=== PATIENT | female | born 1945 | race Caucasian/White ===

== ENCOUNTER → 2024-04-26 06:16 | Day surgery (SDC) | payer MEDICARE, OTHER, SELFPAY | LOC: GI 06:16 | PROVIDERS: ATTENDING PHYSICIAN Internal Medicine | DX: Z12.11 Encounter for screening for malignant neoplasm of colon (principal); D12.2 Benign neoplasm of ascending colon; K63.5 Polyp of colon; K57.30 Diverticulosis of large intestine without perforation or abscess without bleeding | CPT/HCPCS: 45380; 88305 ==

== ENCOUNTER → 2024-05-23 12:15 | Outpatient (REF) | payer MEDICARE, OTHER, SELFPAY | LOC: REG 12:15 | PROVIDERS: ATTENDING PHYSICIAN Family Medicine | DX: J06.9 Acute upper respiratory infection, unspecified (principal) | CPT/HCPCS: 71046 ==

== ENCOUNTER 2024-07-14 06:37 | Day surgery (SDC) | payer MEDICARE, OTHER, SELFPAY ==
[2024-07-14 11:05] VITALS: BMI 29.9
[2024-07-14 11:10] VITALS: BP 139/97
[2024-07-14 11:21] VITALS: BMI 29.9
[2024-07-14 13:55] VITALS: BP 130/90
[2024-07-14 14:00] VITALS: BP 122/88
[2024-07-14 14:15] VITALS: BP 146/92
[2024-07-14 14:28] VITALS: BP 144/90
== END 2024-07-14 14:40 | disposition home or self-care (01) ==
LOC: GI 06:37
PROVIDERS: ATTENDING PHYSICIAN Internal Medicine Gastroenterology
DX: D12.2 Benign neoplasm of ascending colon (principal); D12.5 Benign neoplasm of sigmoid colon; K57.30 Diverticulosis of large intestine without perforation or abscess without bleeding; K64.0 First degree hemorrhoids
CPT/HCPCS: 45390; 45385; 88305

== ENCOUNTER 2025-04-05 06:18 | Day surgery (SDC) | payer MEDICARE, OTHER, SELFPAY | END 2025-04-05 11:42 | disposition home or self-care (01) | LOC: GI 06:18 | PROVIDERS: ATTENDING PHYSICIAN Internal Medicine | DX: Z09 Encounter for follow-up examination after completed treatment for conditions other than malignant neoplasm (principal); K57.30 Diverticulosis of large intestine without perforation or abscess without bleeding; Z86.0100 Personal history of colon polyps, unspecified | CPT/HCPCS: 45378 ==